=== PATIENT | female | born 1990 | race Caucasian/White ===

== ENCOUNTER 2020-12-07 16:07 | Emergency (ER) | payer MEDICAID ==
[~2020-12-07] VITALS: Ht 157.5 cm; Wt 90.7 kg
[2020-12-07 16:22] VITALS: BP 131/91
--- NOTE | 2020-12-07 16:26 | NUR ---
NO NEED NURSING INTERVENTIONS. SEEN & TREATED BY THIERRY LYNNE.
[2020-12-07 16:28] VITALS: BP 131/91
[2020-12-07] MEDS ORDERED: IBUP-1842 PO (16:28)
[2020-12-07] MEDS ORDERED: OFLO5SOL27 LEFT EAR (16:28)
--- NOTE | 2020-12-07 16:28 | NUR ---
Patient discharged with v/s stable. Written and verbal after care instructions given and explained. Patient alert, oriented and verbalized understanding of instructions. Ambulatory with steady gait. All questions addressed prior to discharge. ID band removed. Patient advised to follow up with PMD. Rx of MOTRIN & FLOXIN OT given. Patient educated on indication of medication including possible reaction and side effects. Opportunity to ask questions provided and answered.
== END 2020-12-07 16:28 | disposition home or self-care (01) ==
LOC: MED 16:07
DX: H60.92 Unspecified otitis externa, left ear (principal)
CPT/HCPCS: 99283

== ENCOUNTER 2021-10-16 15:50 | Emergency (ER) | payer MEDICAID ==
[~2021-10-16] VITALS: Ht 154.9 cm; Wt 83.0 kg
[~2021-10-16 15:50] MED LIST: IBUP-1842 PO; OFLO5SOL27 LEFT EAR
[2021-10-16 16:16] VITALS: BP 125/78
[2021-10-16] MEDS ORDERED: METH4TAB1 PO (16:40)
[2021-10-16] MEDS ORDERED: FAMO-92 PO (16:40)
--- NOTE | 2021-10-16 17:54 | NUR ---
NO NURSING CARE RENDEREDPatient discharged with v/s stable. Written and verbal after care instructions given and explained. Patient alert, oriented and verbalized understanding of instructions. Ambulatory with steady gait. All questions addressed prior to discharge. ID band removed. Patient advised to follow up with PMD. Rx of PEPCID, MEDROL given. Patient educated on indication of medication including possible reaction and side effects. Opportunity to ask questions provided and answered.
[2021-10-16 17:55] VITALS: BP 122/72
--- NOTE | 2021-10-16 19:01 | NUR ---
Note utekenneth in EDM - 10/16/21 at 1901 by VERONICA NO NURSING CARE RENDEREDPatient discharged with v/s stable. Written and verbal after care instructions given and explained. Patient alert, oriented and verbalized understanding of instructions. Ambulatory with steady gait. All questions addressed prior to discharge. ID band removed. Patient advised to follow up with PMD. Rx of BENTYL,ATIVAN,NARCAN,ZOFRAN given. Patient educated on indication of medication including possible reaction and side effects. Opportunity to ask questions provided and answered.
== END 2021-10-16 17:55 | disposition home or self-care (01) ==
LOC: MED 15:50
DX: L50.9 Urticaria, unspecified (principal); Z79.899 Other long term (current) drug therapy
CPT/HCPCS: 99283